=== PATIENT | female | born 1990 | race Two or more races ===

== ENCOUNTER 2016-12-23 08:30 | Inpatient (IN) | payer MEDICAID, OTHER ==
[~2016-12-23] VITALS: Ht 177.8 cm; Wt 83.3 kg
[2016-12-23 09:25] LABS: Albumin 3.2 g/dL (3.4-5.0); BUN/Creatinine Ratio 8.3; Bilirubin, Total 0.3 mg/dL (0.2-1.0); Magnesium 2.5 mg/dL (1.6-2.6); Potassium 3.8 mmol/L (3.5-5.1); Total Protein 8.9 g/dL (6.4-8.2)
[2016-12-23 09:36] LABS: Basophils # (auto) 0 uL; Basophils % (auto) 0.3 % (0.0-2.0); DEFINITIVE VIEW TRANSMISSION; Eosinophils # (auto) 0.1 uL; Eosinophils % (auto) 0.6 % (0.0-7.0); Hematocrit 39.6 % (36.0-46.0); Hemoglobin 12.8 g/dL (12.2-16.2); Lymphocytes # (auto) 1.6 uL; Lymphocytes % (auto) 10.3 % (10.0-50.0); Mean Corpuscular Hemoglobin 26.4 pg (28.0-32.0); Mean Corpuscular Hgb Conc. 32.2 g/dL (32.0-36.0); Mean Platelet Volume 7.2 fL (7.4-10.4); Monocytes # (auto) 0.8 uL; Monocytes % (auto) 5.2 % (0.0-12.0); Neutrophils # (auto) 12.6 uL; Neutrophils % (auto) 83.6 % (37.0-80.0); Platelet Count (auto) 531 10^3/uL (140-450); SUSPECT VIEW TRANSMISSION; White Blood Cell 15.1 10^3/uL (4.4-10.8)
[2016-12-23 10:07] LABS: Urine Bilirubin Negative (Negative); Urine Color Yellow (Yellow); Urine Glucose Normal (Normal); Urine Ketone Negative (Negative); Urine Mucus FEW (None Seen); Urine RBC 76 /hpf (0 - 4); Urine Squamous Epithelial Cell FEW /hpf (<5); Urine pH 6.5 (5.0-8.0)
[2016-12-23 10:11] LABS: Urine Blood 2+ /uL (Negative); Urine Nitrite POSITIVE (Negative)
[2016-12-23] MEDS ORDERED: PROMETHAZINE HCL 25 MG/ML 1ML IV ONE (10:15)
[2016-12-23] MEDS ORDERED: KETOROLAC TROMETH 30 MG/ML 1ML VIAL IV ONE (10:15)
[2016-12-23] MEDS ORDERED: cefTRIAXone 1GM/50ML D5W 50 ML IV ONE ×2 (10:30→10:45)
[2016-12-23] MEDS ORDERED: ACETAMINOPHEN 500 MG TAB PO PRN (10:45)
[2016-12-23] MEDS ORDERED: HYDROcodone-ACET 5/325MG TAB PO PRN (10:45)
[2016-12-23] MEDS ORDERED: MORPHINE SULF INJ 2 MG/ML SYRINGE 1ML IV PRN (10:45)
[2016-12-23] MEDS ORDERED: NITROGLYCERIN 0.4 MG SL TAB SL PRN (10:45)
[2016-12-23] MEDS ORDERED: TEMAZEPAM 15 MG CAP PO PRN (10:45)
[2016-12-23] MEDS ORDERED: PROMETHAZINE HCL 25 MG/ML 1ML IV PRN (10:45)
[2016-12-23] MEDS ORDERED: LORazepam 0.5 MG TAB PO PRN (10:45)
[2016-12-23] MEDS ORDERED: NORPTMEDS CO (10:55)
[2016-12-23] MEDS: SODIUM CHLORIDE 0.9% 1,000 ML IV SCH ×2 (11:04→12:00)
[2016-12-23] MEDS: FAMOTIDINE 20 MG TAB PO SCH ×2 (11:30→21:54)
[2016-12-23] MEDS: ENOXAPARIN SOD 40 MG/0.4 ML SYRINGE SC SCH (11:30)
[2016-12-23 12:00] VITALS: BP 89/57
[2016-12-23] MEDS ORDERED: IOHEXOL 350 MG/ML 100ML IJ ONE (14:38)
[2016-12-23 16:01] VITALS: BP 92/53
[2016-12-23] MEDS ORDERED: AZITHROMYCIN 500MG/D5W 250ML 250 ML IV ONE (17:30)
[2016-12-23] MEDS: MORPHINE SULF INJ 2 MG/ML SYRINGE 1ML IV PRN (18:29)
[2016-12-23 22:21] VITALS: BP 97/58
[2016-12-24] MEDS ORDERED: ASPirin 325 MG TAB PO ONE (02:15)
[2016-12-24] MEDS: SODIUM CHLORIDE 0.9% 1,000 ML IV SCH ×2 (02:29→16:33)
[2016-12-24 05:12] VITALS: BP 108/63
[2016-12-24 06:50] LABS: Basophils # (auto) 0 uL; Basophils % (auto) 0.1 % (0.0-2.0); Eosinophils # (auto) 0.1 uL; Eosinophils % (auto) 1.1 % (0.0-7.0); Hematocrit 30.6 % (36.0-46.0); Hemoglobin 10.1 g/dL (12.2-16.2); Lymphocytes # (auto) 2.2 uL; Lymphocytes % (auto) 16.4 % (10.0-50.0); Mean Corpuscular Hemoglobin 27.1 pg (28.0-32.0); Mean Corpuscular Hgb Conc. 33.1 g/dL (32.0-36.0); Mean Corpuscular Volume 81.8 fL (80.0-100.0); Monocytes # (auto) 0.8 uL; Monocytes % (auto) 6.1 % (0.0-12.0); Neutrophils # (auto) 10.3 uL; Neutrophils % (auto) 76.3 % (37.0-80.0); Platelet Count (auto) 426 10^3/uL (140-450); SUSPECT VIEW TRANSMISSION; White Blood Cell 13.4 10^3/uL (4.4-10.8)
[2016-12-24 07:23] LABS: Albumin 2.4 g/dL (3.4-5.0); BUN/Creatinine Ratio 9.4; Bilirubin, Total 0.2 mg/dL (0.2-1.0); Calcium 8.2 mg/dL (8.5-10.1); Potassium 3.4 mmol/L (3.5-5.1); Total Protein 7.1 g/dL (6.4-8.2)
[2016-12-24 09:00] VITALS: BP 110/64
[2016-12-24] MEDS: FAMOTIDINE 20 MG TAB PO SCH ×2 (09:49→21:58)
[2016-12-24] MEDS ORDERED: AZITHROMYCIN 500MG/D5W 250ML 250 ML IV SCH (10:00)
[2016-12-24] MEDS: ENOXAPARIN SOD 40 MG/0.4 ML SYRINGE SC SCH (11:10)
[2016-12-24] MEDS: cefTRIAXone 1GM/50ML D5W 50 ML IV SCH (11:11)
[2016-12-24] MEDS ORDERED: COLCHICINE 0.6 MG TAB/CAP PO ONE (11:15)
[2016-12-24] MEDS ORDERED: KETOROLAC TROMETH 30 MG/ML 1ML VIAL IV ONE (11:30)
[2016-12-24 14:56] VITALS: BP 87/57
[2016-12-24 22:00] VITALS: BP 96/55
[2016-12-24] MEDS ORDERED: COLCHICINE 0.6 MG TAB/CAP PO SCH (22:00)
[2016-12-25] MEDS: SODIUM CHLORIDE 0.9% 1,000 ML IV SCH (02:35)
[2016-12-25 05:00] VITALS: BP 103/71
[2016-12-25 05:35] VITALS: BP 96/55
[2016-12-25 06:18] LABS: Basophils # (auto) 0 uL; Basophils % (auto) 0.3 % (0.0-2.0); DEFINITIVE VIEW TRANSMISSION; Eosinophils # (auto) 0.3 uL; Eosinophils % (auto) 2.7 % (0.0-7.0); Hematocrit 31.8 % (36.0-46.0); Hemoglobin 10.3 g/dL (12.2-16.2); Lymphocytes # (auto) 1.9 uL; Lymphocytes % (auto) 15.3 % (10.0-50.0); Mean Corpuscular Hemoglobin 26.4 pg (28.0-32.0); Mean Corpuscular Hgb Conc. 32.3 g/dL (32.0-36.0); Mean Corpuscular Volume 81.8 fL (80.0-100.0); Mean Platelet Volume 6.7 fL (7.4-10.4); Monocytes # (auto) 0.7 uL; Monocytes % (auto) 5.8 % (0.0-12.0); Neutrophils # (auto) 9.5 uL; Neutrophils % (auto) 75.9 % (37.0-80.0); Platelet Count (auto) 424 10^3/uL (140-450); Red Cell Distribution Width 15.6 % (11.6-16.0); SUSPECT VIEW TRANSMISSION; White Blood Cell 12.6 10^3/uL (4.4-10.8)
[2016-12-25 06:29] LABS: Potassium 3.6 mmol/L (3.5-5.1)
[2016-12-25 06:33] LABS: Albumin 2.3 g/dL (3.4-5.0); BUN/Creatinine Ratio 11.3; Calcium 8.2 mg/dL (8.5-10.1)
[2016-12-25 06:36] LABS: Bilirubin, Total 0.2 mg/dL (0.2-1.0); Total Protein 6.8 g/dL (6.4-8.2)
[2016-12-25] MEDS: MORPHINE SULF INJ 2 MG/ML SYRINGE 1ML IV PRN (07:13)
[2016-12-25 09:00] VITALS: BP 106/66
[2016-12-25] MEDS: cefTRIAXone 1GM/50ML D5W 50 ML IV SCH (09:25)
[2016-12-25 09:59] VITALS: BP 106/66
[2016-12-25 13:00] VITALS: BP 87/46
[2016-12-25 14:06] LABS: Thyroid Peroxidase (TPO) Ab 406 IU/mL (0-34)
[2016-12-25 15:08] LABS: Sjogren's Anti-SS-A Antibody <0.2 AI (0.0-0.9)
[2016-12-28 10:07] LABS: Anti-intermyofibrillar Ab Negative (Neg:<1:20); Anti-sarcolemma Antibody Negative (Neg:<1:20)
== END 2016-12-25 12:30 | disposition home or self-care (01) | DRG 207 ==
LOC: ER 08:31 → TELE 08:32 → TELE-E-ADS 11:31 → TELE-CENTR 12:06
PROVIDERS: ADMIT Internal Medicine; ATTEND Internal Medicine
DX: I31.9 Disease of pericardium, unspecified (principal); E43 Unspecified severe protein-calorie malnutrition; J18.9 Pneumonia, unspecified organism; N10 Acute pyelonephritis; E87.1 Hypo-osmolality and hyponatremia; E66.01 Morbid (severe) obesity due to excess calories; J98.11 Atelectasis; J98.4 Other disorders of lung; R00.0 Tachycardia, unspecified; J20.9 Acute bronchitis, unspecified; Z68.26 Body mass index [BMI] 26.0-26.9, adult; Z90.49 Acquired absence of other specified parts of digestive tract; Z82.49 Family history of ischemic heart disease and other diseases of the circulatory system; Z84.89 Family history of other specified conditions
CPT/HCPCS: 36415; 71020; 71275; 80053; 80061; 81001; 81025; 82550; 83735; 84443; 84484; 84702; 85025; 85049; 85379; 85652; 86141; 86225; 86235; 87040; 87086; 87088; 87186; 93005; 93306; 96374; 96375; G0434; J0696; J1885